=== PATIENT | male | born 1960 | race African-American/Black ===

== ENCOUNTER 2018-07-07 06:40 | Emergency (ER) | payer MEDICAID ==
[~2018-07-07] VITALS: Ht 172.7 cm; Wt 99.8 kg
[~2018-07-07 06:40] MED LIST: AUGMENTIN 875-1 EAC1 ORAL; FLONASE1 SPRAYS; GENTAK5 ML RIGHT EYE; LORATADINE10 M2 PO; NKM; PHENERGAN6.25 MG/5 PO
[2018-07-07] MEDS ORDERED: NKM (06:54)
[2018-07-07 07:05] VITALS: BP 128/86
--- NOTE | 2018-07-07 07:05 | NUR ---
ED Nurse Note: PT WALKED IN TO ER TODAY FROM HOME. AOX4. PT C/O PAINFUL STYE, 5/10, AT INNER LOWER LEFT EYELID WELL SWELLING AND DISCHARGE OF LEFT EYE X 5 DAYS AGO. PT DENIES ANY CHANGES IN VISION.
--- NOTE | 2018-07-07 07:08 | Emergency Room Report ---
History of Present Illness General Chief Complaint: Eye Problems Source: Patient Present Illness HPI Patient presents with 4 days of swelling in the lower eyelid with some irritation. He took Motrin yesterday which helped. There's been no fevers. There was no trauma. He previously had shingles on the side of his face near that area. He was concerned that this might be related to that. There is no change in vision. He's been able to work because of the discomfort in his eye. No sore throat, cough, chest pain, nausea, vomiting, diarrhea, dysuria, joint pain, headache. Allergies: Coded Allergies: No Known Allergies (Unverified , 07/07/18) Patient History Past Medical History: see triage record Social History: Denies: smoking Social History Narrative working Reviewed Nursing Documentation: PMH: Agreed; PSxH: Agreed Nursing Documentation-PMH Past Medical History: No Stated History Review of Systems All Other Systems: negative except mentioned in HPI Physical Exam Vital Signs Date Time Temp Pulse Resp B/P (MAP) Pulse Ox O2 Delivery O2 Flow Rate FiO2 07/07/18 06:49 98.2 77 12 134/91 95 Room Air Sp02 EP Interpretation: reviewed, normal General Appearance: well appearing, no apparent distress Head: normocephalic, atraumatic Eyes: left eye other - Medial stye with patient point not involving Surgilav; bilateral eye PERRL, bilateral eye EOMI ENT: hearing grossly normal, normal voice Neck: full range of motion, supple Respiratory: no respiratory distress, speaking full sentences Musculoskeletal: no calf tenderness Neurologic: alert, normal gait, grossly normal Psychiatric: mood/affect normal Skin: other - See eye exam. No evidence of shingles outbreak. Medical Decision Making Diagnostic Impression: Primary Impression: Stye Qualified Codes: H00.015 - Hordeolum externum left lower eyelid ER Course Patient presents with a stye. The diagnosis is clinical. Antibiotics are indicated. Patient needs to follow-up with his physician and he was advised to use warm soaks. Patient stable for outpatient observation and treatment. Last Vital Signs Date Time Temp Pulse Resp B/P (MAP) Pulse Ox O2 Delivery O2 Flow Rate FiO2 07/07/18 07:57 98.3 72 15 132/88 99 Room Air Status: improved Disposition: HOME, SELF-CARE Condition: Improved Scripts Bacitracin (Bacitracin) 28.4 Gm Oint...g. 1 APPLIC TOPIC BID, #10 GM Prov: Khadar Romano MD 07/07/18 Ciprofloxacin (Ciprofloxacin HCl) 2.5 Ml Drops 2 DROP LEFT EYE Q6HR, #5 ML Prov: Khadar Romano MD 07/07/18 Khadar Romano MD Jul 07, 2018 07:08
[2018-07-07] MEDS ORDERED: CILOXAN 0.3% O1 DROP LEFT EYE (07:11)
[2018-07-07] MEDS ORDERED: BACITRACIN15 GM TOPIC (07:11)
[2018-07-07] MEDS ORDERED: Bacitracin Oint UD TOPIC ONE (07:15)
[2018-07-07] MEDS ORDERED: Ciprofloxacin Opth Soln 2.5ml LEFT EYE ONE (07:15)
[2018-07-07 07:57] VITALS: BP 132/88
--- NOTE | 2018-07-07 07:58 | NUR ---
ED Nurse Note: PT SITTING PEACEFULLY IN BED IN NAD. AOX4. PRESCRIPTIONS AND DISCHARGE PAPERWORK EXPLAINED TO PT. PT VERBALIZES UNDERSTANDING AND ALL QUESTIONS ANSWERED. PRESCRIPTIONS AND DISCHARGE PAPERWORK GIVEN TO PT AND ID WRISTBAND REMOVED. PT WALKED OUT OF ER WITH STEADY GAIT AND ALL BELONGINGS.
== END 2018-07-07 07:59 | disposition home or self-care (01) ==
LOC: EMR 07:05
DX: H00.015 Hordeolum externum left lower eyelid (principal)
CPT/HCPCS: 99282

== ENCOUNTER 2019-11-13 14:51 | Emergency (ER) | payer MEDICAID ==
[~2019-11-13] VITALS: Ht 172.7 cm; Wt 95.3 kg
[~2019-11-13 14:51] MED LIST changes: +BACITRACIN15 GM TOPIC; +CILOXAN 0.3% O1 DROP LEFT EYE; +IBUPROFEN600 MG ORAL; +NORCO 5-325 TA1 EACH ORAL; +VALIUM5 MG ORAL
[2019-11-13 15:00] VITALS: BP 118/85
--- NOTE | 2019-11-13 15:52 | Emergency Room Report ---
History of Present Illness General Chief Complaint: Upper Extremity Injury Source: Patient Present Illness HPI 59-year-old male presents to the emergency department complaining of 8 out of 10 in severity tender, swollen and discolored area on the right palm that is been progressive x3 days. Patient denies similar lesions elsewhere on his body. He denies significant past medical history other than shingles in 2014. He denies trauma or fall. He denies known foreign body. He denies recent gardening activities. Pt. does not recall being poked by any plants or wood items such as hand rails. Pt. denies fevers, chills or swollen tender lymph nodes. Denies lesions/rashes elsewhere on the body. Denies new medications or body washes or creams. Denies swelling of the lips, tongue , throat or airway. Denies wheezing, or shortness of breath. Denies recent travel, recent illness or ill contacts. Denies blisters, oral lesions, or sloughing of the skin. Denies hx of STI specifically Syphilis. Pt. denies cardiac issues. Denies CP. Allergies: Coded Allergies: No Known Allergies (Unverified , 07/07/18) COVID-19 Screening Contact w/high risk pt: No Recent Travel to affected area: No Experienced COVID-19 symptoms?: No COVID-19 Testing performed UNBUNDLER: No Patient History Past Medical History: see triage record Past Surgical History: none Pertinent Family History: none Reviewed Nursing Documentation: PMH: Agreed; PSxH: Agreed Review of Systems All Other Systems: negative except mentioned in HPI Physical Exam Vital Signs Date Time Temp Pulse Resp B/P (MAP) Pulse Ox O2 Delivery O2 Flow Rate FiO2 11/13/19 14:56 98.4 99 19 118/85 (96) 98 Room Air Sp02 EP Interpretation: reviewed, normal General Appearance: no apparent distress, alert, GCS 15, non-toxic Head: normocephalic, atraumatic Eyes: bilateral eye normal inspection, bilateral eye PERRL ENT: hearing grossly normal, normal voice, other - no swelling of the lips or tongue Respiratory: lungs clear, normal breath sounds, speaking full sentences Cardiovascular #1: regular rate, rhythm, normal capillary refill Musculoskeletal: normal range of motion, gait/station normal, tender - right palm- ulnar aspect., swelling - palm of the right hand, mild palpable induration , no fluctuance. Neurologic: alert, motor strength/tone normal, oriented x3, sensory intact, responsive, speech normal Psychiatric: judgement/insight normal Skin: other - single discrete punctate indurated hyperpigmented lesion less than 0.4cm in size. mild surrounding erythma and warmth. Some associated ST swelling. NO obvious FB visualized. No other lesions. NO blisters or vesicles. No sloughing of the skin. No red streaking. No splinter hemorrhages on nails. Lymphatic: no adenopathy Medical Decision Making PA Attestation Dr. Ryan is my supervising Physician whom patient management has been discussed with. Diagnostic Impression: Primary Impression: Localized skin eruption ER Course 59-year-old male presents to the emergency department complaining of 8 out of 10 in severity tender, swollen and discolored area on the right palm that is been progressive x3 days. Patient denies similar lesions elsewhere on his body. He denies significant past medical history other than shingles in 2014. He denies trauma or fall. He denies known foreign body. He denies recent gardening activities. Pt. does not recall being poked by any plants or wood items such as hand rails. Pt. denies fevers, chills or swollen tender lymph nodes. Denies lesions/rashes elsewhere on the body. Denies new medications or body washes or creams. Denies swelling of the lips, tongue , throat or airway. Denies wheezing, or shortness of breath. Denies recent travel, recent illness or ill contacts. Denies blisters, oral lesions, or sloughing of the skin. Denies hx of STI specifically Syphilis. Pt. denies cardiac issues. Denies CP. Ddx considered but are not limited to cellulitis, scabies, shingles, varicella, dermatitis, urticaria, eczema, tinea, viral exanthem, SJS, Sporothrix, endocarditis, syphilis, wart , or soft tissue foreign body just to name a few Vital signs: are WNL, pt. is afebrile H&PE are most consistent with ST skin eruption with mild erythema and induration possibly representing infection. d/w pt. need for complete evaluation by dermatology. ORDERS: none required at this time, the diagnosis is clinical ED INTERVENTIONS: None required at this time. DISCHARGE: At this time pt. is stable for d/c to home. Will provide printed patient care instructions, and any necessary prescriptions. Care plan and follow up instructions have been discussed with the patient prior to discharge. Other X-Ray Diagnostic Results Other X-Ray Diagnostic Results : X-Ray ordered: Right Hand # of Views/Limited Vs Complete: 3 View Indication: Pain EP Interpretation: Yes PA Xray: Interpretation reviewed, by supervising MD, and agrees with findings. Interpretation: no dislocation, no soft tissue swelling, no fractures, other - NO radiopaque ST FB Impression: No acute disease Electronically Signed by: Christine Moore PA-C Last Vital Signs Date Time Temp Pulse Resp B/P (MAP) Pulse Ox O2 Delivery O2 Flow Rate FiO2 11/13/19 15:00 98.4 99 19 118/85 98 Room Air Disposition: HOME, SELF-CARE Condition: Stable Scripts Ibuprofen* (MOTRIN*) 600 Mg Tablet 600 MG ORAL THREE TIMES A DAY, #20 TAB Prov: Christine Pena 11/13/19 Bacitracin Zinc* (BACITRACIN ZINC*) 1 Each Packet 1 APPLIC TOPIC THREE TIMES A DAY, #28.3 PACKET Prov: Christine Pena 11/13/19 Cephalexin* (KEFLEX*) 500 Mg Capsule 500 MG ORAL EVERY 12 HOURS for 7 Days, #14 CAP 0 Refills Prov: Christine Pena 11/13/19 Referrals: [facility]ERRING (PCP) [facility] + [facility] Patient Instructions: Medical Screening Exam, Warts, [id number] Additional Instructions: Take medications as directed. Follow up with a Primary Care Provider in 3-5 days for DERMATOLOGY REFERRAL Or Hand Specialist, even if your symptoms have resolved. --Please review list of primary care clinics, if you do not already have a primary care provider Return sooner to ED if new symptoms occur, or current symptoms become worse. - Please note that this Emergency Department Report was dictated using [employer]bet[employer]istant community director technology software, occasionally this can lead to erroneous entry secondary to interpretation by the dictation equipment. Christine Pena Nov 13, 2019 15:52
[2019-11-13] MEDS ORDERED: BACITRACIN ZIN1 EACH TOPIC (15:53)
[2019-11-13] MEDS ORDERED: CEPHALEXIN500 MG ORAL (15:53)
[2019-11-13] MEDS ORDERED: IBUPROFEN600 M1 ORAL (15:53)
[2019-11-13 15:58] VITALS: BP 118/85
--- NOTE | 2019-11-13 16:15 | Diagnostic Imaging Report ---
Indication: Right hand pain, foreign body Technique: 3 views right hand Comparison: none Findings: No acute fractures. No dislocations. The joint spaces are preserved. Impression: Negative
== END 2019-11-13 15:58 | disposition home or self-care (01) ==
LOC: EMR 15:19
DX: R21 Rash and other nonspecific skin eruption (principal)
CPT/HCPCS: 73130; Z7502; 99283